=== PATIENT | female | born 1955 | race Hispanic/Latino ===

== ENCOUNTER → 2019-06-14 | Outpatient (CLI) | payer OTHER ==
[~2019-06-14] MED LIST: ALEVE220 MG PO; ASPIRIN81 MG PO; ATACAND16 MG PO; ATORVASTATIN CA20 MG PO; CLONIDINE HCL0.1 MG PO; CYCLOBENZAPRINE10 MG PO; LASIX20 MG PO; LORAZEPAM1 MG PO; MACRODANTIN100 MG PO; METOPROLOL PO; NITROGLYCERIN0.4 MG SL; OMEPRAZOLE40 MG PO; TAPAZOLE5 MG PO; TYLENOL WITH C1 EACH PO
--- NOTE | 2019-06-14 12:42 | Diagnostic Imaging Report ---
Exam: KUB - 2 views Indication: Renal calculus Comparison: None Findings: No radiographically apparent renal calculi. Nonobstructive bowel gas pattern. No free air. Mild degenerative changes of the spine and both hip joints. Status post cholecystectomy. Impression: No radiographically apparent renal calculi. Signed by: Sayra Krishna MD on 06/14/2019 12:39 PM
--- NOTE | 2019-06-14 13:14 | Diagnostic Imaging Report ---
EXAM: Renal Ultrasound INDICATION: ^UT/CYST OF KIDNEY COMPARISON: None TECHNIQUE: Transverse and longitudinal images of the kidneys and bladder were obtained. FINDINGS: Right Kidney: Length: 9.2 cm Appearance: Normal echogenicity. Collecting system: No hydronephrosis Stones: None Cyst/Mass: Upper pole anechoic simple cyst measures up to 2.2 cm. Lower pole anechoic simple cyst measures up to 1.2 cm.. Left Kidney: Length: 11.2 cm Appearance: Normal echogenicity. Collecting system: No hydronephrosis Stones: None Cyst/Mass: None Bladder: No mass or calculi. Bilateral ureteral jets visualized. Prevoid volume estimate of 91.2 cc. IMPRESSION: No hydronephrosis or renal calculi. Simple right renal cysts as above. Signed by: Sayra Krishna MD on 06/14/2019 1:11 PM
== END ==
LOC: US 11:05
PROVIDERS: ATTEND Urology
DX: N39.0 Urinary tract infection, site not specified (principal); N28.1 Cyst of kidney, acquired
CPT/HCPCS: 74018; 76770

== ENCOUNTER → 2019-07-15 | Outpatient (CLI) | payer MEDICARE ==
[~2019-07-15] MED LIST changes: +FUROSEMIDE INJ 10 MG/ML 4 ML VIAL ONE
--- NOTE | 2019-07-15 15:26 | Diagnostic Imaging Report ---
Renal Scan with Lasix Washout Clinical information: Renal sclerosis; renal cyst Technique: Following intravenous administration of 10 mCi of Tc-99m MAG3, dynamic images of the kidneys in the posterior projection were obtained through 40 minutes. Lasix 40 mg was administered intravenously at 10 minutes post injection of the tracer. Report: Left kidney: Perfusion of the left kidney is prompt. The kidney has a normal reniform shape. Extraction of tracer from the blood pool is decreased. Clearance of tracer from the renal parenchyma begins promptly but is not complete by the end of the study. The pelvicalyceal system is not dilated. Increased pooling of tracer is seen within the pelvicalyceal system. Drainage of tracer from the pelvicalyceal system is prompt and adequate prior to administration of Lasix. Washout of tracer from the pelvicalyceal system following administration of Lasix is adequate with a T-1/2 of 14 minutes (normal less than 15 minutes). No significant stasis of tracer is seen within the left ureter. Right kidney: Perfusion to the right kidney is prompt. The right kidney has a reniform shape but is overall reduced in size and much smaller than the left kidney. Extraction of tracer by the renal parenchyma is decreased. Clearance of tracer from the renal parenchyma begins promptly but is not complete by the end of the study. The pelvicalyceal system is not dilated. No increased pooling of tracer is seen within the pelvicalyceal system. Drainage of tracer from the pelvicalyceal system is prompt and adequate prior to administration of Lasix. Washout of tracer from the pelvicalyceal system following administration of Lasix is rapid with a T-1/2 of 4 minutes (normal less than 15 minutes). No significant stasis of tracer is seen within the right ureter. Differential renal function: The left kidney contributes 74% of total renal function and the right kidney contributes 26% (normal 43-57%). Impression: 1. Scan evidence of medical renal disease in the left kidney evidenced by decreased extraction of tracer from the blood pool and persistence of tracer in the renal parenchyma by the end of the study. No hydronephrosis is present. No physiologically significant obstruction of the renal collecting system is present. The Lasix washout of 14 minutes is not unusual with medical renal disease due to the pelvicalyceal system not filling to near full capacity. 2. Scan evidence of medical renal disease in the right kidney evidenced by decreased extraction of tracer from the blood pool and persistence of tracer in the renal parenchyma by the end of the study. The decreased differential function of the kidney of 26% relative to the left kidney is due to additional loss of renal parenchyma and further reduction of the size of the kidney compared to the left kidney No hydronephrosis is present. No physiologically significant obstruction of the renal collecting system is present. Signed by: Dr. Tyra Andrew M.D. on 07/15/2019 3:22 PM
== END ==
LOC: NM 12:08
PROVIDERS: ATTEND Urology
DX: N26.9 Renal sclerosis, unspecified (principal); N28.1 Cyst of kidney, acquired
CPT/HCPCS: 78708; A9562; J1940